=== PATIENT | female | born 1980 ===

== ENCOUNTER 2018-12-05 12:31 | Emergency (ER) | payer OTHER ==
[2018-12-05 12:36] VITALS: BP 105/57
[2018-12-05] MEDS ORDERED: CITA-145 PO (12:37)
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
[2018-12-05] MEDS ORDERED: APAP/HYDROCODONE 325/5 TAB PO ONE (14:15)
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
[2018-12-05] MEDS ORDERED: HYDR-385 PO (14:38)
[2018-12-05] MEDS ORDERED: CYCL10TA29 PO (14:38)
== END 2018-12-05 14:58 | disposition home or self-care (01) ==
LOC: ER 12:38
DX: S39.012A Strain of muscle, fascia and tendon of lower back, initial encounter (principal); S60.222A Contusion of left hand, initial encounter; V43.52XA Car driver injured in collision with other type car in traffic accident, initial encounter
CPT/HCPCS: 72120; 99284